=== PATIENT | female | born 1985 | race Caucasian/White ===

== ENCOUNTER 2017-06-15 10:05 | Emergency (ER) | payer SELFPAY ==
[2017-06-15 10:39] LABS: BASO % 0.3 % (0.0-2.0); EOS # 0.1 K/uL (0.0-0.7); EOS % 0.9 % (0.0-4.0); HEMATOCRIT 27.3 % (34.0-47.0); LYMPH # 1.6 K/uL (1.0-4.3); LYMPH % 22.6 % (20.0-40.0); MEAN CELL VOLUME 92.4 fL (81.0-99.0); MEAN CORPUSCULAR HEMOGLOBIN 30.7 pg (27.0-31.0); MEAN CORPUSCULAR HGB CONC 33.2 g/dL (33.0-37.0); MEAN PLATELET VOLUME 7.1 fL (7.2-11.7); MONO # 0.5 K/uL (0.0-0.8); MONO % 6.7 % (0.0-10.0); RED CELL DISTRIBUTION WIDTH 15.9 % (11.5-14.5); WHITE BLOOD COUNT 7.2 K/uL (4.8-10.8)
[2017-06-15 10:47] LABS: RBC URINE 5 /hpf (0-3); URINE BACTERIA RARE (<OCC); URINE BILIRUBIN NEGATIVE (NEGATIVE); URINE BLOOD NEGATIVE (NEGATIVE); URINE COLOR Yellow (YELLOW); URINE GLUCOSE (UA) NORMAL (Normal); URINE KETONE NEGATIVE (NEGATIVE); URINE LEUKOCYTE ESTERASE 3+ Leu/uL (Negative); URINE PROTEIN NEGATIVE (NEGATIVE); URINE UROBILINOGEN NORMAL mg/dL (0.2-1.0); WBC URINE 31 /hpf (0-5)
[2017-06-15] MEDS ORDERED: ceFAZolin IV 2 gm in Dextrose 1 GM/50 ML BAG IVPB ONE (11:41)
--- NOTE | 2017-06-15 11:44 | OBDCSUM ---
Datetime: 06/15/2017 11:43 Follow up at, Provider: Dr Marcum Disch Instr Activity: Normal activity Disch Instr Diet: Regular Discharge Instructions, Provider: Routine instructions given Discharge Time: 06/15/2017 11:43 Follow up in weeks, Provider: 06/21/17 Discharge Comment, Provider: precautions given if pain, bleeding, leakign fluis, discharge, no or decreased movement go tonearst er Discharge Diagnosis Prov Other: UTI
--- NOTE | 2017-06-15 11:44 | OBHP ---
Datetime: 06/15/2017 11:39 IP Adm Impression: , intrauterine IP Admit Plan: Discharge home Admit Comment, IP Provider: 32 y/o @ 35.5 wks GA with previous ceeseaen section c/ o non sepcif im abodminal pain since yesterady. pt reports pain is 4/10. pt reprots irregular contx, denie lof, vb , +FM. pt reports urinary frquency with incomplete empyting. pt deies any blood in urine or constipat on. Pt denies any back pain VSS PE; see above UA3+ leukocyts A/P 32 @ 35.5 wks GA with UTI, no evidence of active labor -S/p CBC, UA -UTI: Ancef, rx keflex -Anemia: on ferroussulfate BID -NST reactive, VE uncahged -Fu PMD 1 week - labor precautiosn given -NST reactivie Pelvic Type - PN: Adequate Extremities - PN: Normal Abdomen - PN: Normal Back - PN: Normal Breast - PN: Normal Lungs - PN: Normal Heart - PN: Normal Thyroid - PN: Normal Neurologic - PN: Normal HEENT - PN: Normal General - PN: Normal Presentation-Admit: Vertex FHR - Baseline A Provider: 130 Contraction Comments Provider: irregular Comments, ACOG Physical Exam: abd; garvid, no palble ctx, no uterine tenderns,s no incsinal tenderne ss Gestation - Est Wks by US: 35.5 EGA AdmitDate IP: 35.5 IP Chief Complaint: Other NICHD Variability Prov Fetus A: Moderate 6-25bpm NICHD Accel Fetus A IP Provider: 15X15 FHR Category Provider Fetus A: Category I NICHD Decel Fetus A IP Provider: None Dilatation, Provider: 1 Effacement, Provider: 50 Station, Provider: -3 Genitourinary Exam: Normal DTRs - PN: Normal
[2017-06-15] MEDS ORDERED: ceFAZolin IV 2 gm in Dextrose 1 GM/50 ML BAG IVPB SCH (12:00)
[2017-06-15] MEDS ORDERED: ceFAZolin IV 2 gm in Dextrose 2 GM/100 ML BAG IVPB SCH (12:00)
[2017-06-15 19:12] VITALS: PULSE 104; O2SAT 98
== END 2017-06-15 11:55 | disposition home or self-care (01) ==
LOC: C.EROB 10:05
DX: O23.43 Unspecified infection of urinary tract in pregnancy, third trimester (principal); Z3A.35 35 weeks gestation of pregnancy
CPT/HCPCS: 81001; 85025; 86850; 86860; 86870; 86900; 86905; 99283; J0690

== ENCOUNTER 2017-06-21 13:25 | Inpatient (IN) | payer MEDICAID, OTHER ==
[2017-06-21 13:32] VITALS: BMI 25.7
[2017-06-21] MEDS ORDERED: Lactated Ringer's 1,000 ML IV ONE (13:33)
[2017-06-21 14:05] LABS: BASO % 0.1 % (0.0-2.0); EOS % 0.5 % (0.0-4.0); HEMATOCRIT 28.5 % (34.0-47.0); LYMPH # 2.1 K/uL (1.0-4.3); LYMPH % 22.3 % (20.0-40.0); MEAN CELL VOLUME 92.3 fL (81.0-99.0); MEAN CORPUSCULAR HEMOGLOBIN 30.9 pg (27.0-31.0); MEAN CORPUSCULAR HGB CONC 33.5 g/dL (33.0-37.0); MEAN PLATELET VOLUME 7.4 fL (7.2-11.7); MONO # 0.6 K/uL (0.0-0.8); MONO % 6.5 % (0.0-10.0); NRBC % 0.1 % (0.0-2.0); RED CELL DISTRIBUTION WIDTH 15.1 % (11.5-14.5); WHITE BLOOD COUNT 9.6 K/uL (4.8-10.8)
[2017-06-21] MEDS ORDERED: Betamethasone Soluspan 30 mg/5mL Inj Susp IM ONE (14:45)
[2017-06-21] MEDS ORDERED: Sodium Citrate/Citric Acid 15 ml Sol PO ONE (15:06)
[2017-06-21] MEDS ORDERED: cefOXitin IV 2 gm in Dextrose 2 GM/50 ML BAG IVPB ONE ×2 (15:06→17:40)
--- NOTE | 2017-06-21 15:26 | OBHP ---
Datetime: 06/21/2017 15:05 IP Adm Impression: , intrauterine ; Active labor IP Admit Plan: Admit to unit Admit Comment, IP Provider: chief complaint-contractions HPI 32 y/o at 36 weeks and 4 days with c/o incisional pain since last 1 week.Pain wosre today Patient denies nausea, vomting, headache, chest pain, shortness of breath, numbness or tingling in hands and feet course uncompliacted PMH denies PSH csection OBGYN HX ; NVDX2; Csectionx1 Social hx denies tobacco,alcohol or illicit drug use Exam see exam section A/P 32 y/o at 36 weeks and 4 days in labor.hx of previous csection -admit -celestone -iv fluids -monitor closely discussed with dr avendano Pelvic Type - PN: Adequate Extremities - PN: Normal Abdomen - PN: Normal Back - PN: Normal Breast - PN: Normal Lungs - PN: Normal Heart - PN: Normal Neurologic - PN: Normal General - PN: Normal Weight - Estimated: 3000 Presentation-Admit: Vertex Contraction Comments Provider: irregular Gestation - Est Wks by US: 36.4 IP Hx Assessment: The History has been Reviewed and is Current EGA AdmitDate IP: 36.4 Vital Signs Provider: Reviewed; Within Normal Limits IP Chief Complaint: Uterine contractions FHR Category Provider Fetus A: Category I Dilatation, Provider: 3-4 Effacement, Provider: 80 Station, Provider: -2 Genitourinary Exam: Normal DTRs - PN: Normal
--- NOTE | 2017-06-21 15:29 | OBADHP ---
Datetime: 06/21/2017 15:05 Admit Comment, IP Provider: chief complaint-contractions HPI 32 y/o at 36 weeks and 4 days with c/o incisional pain since last 1 week.Pain wosre today Patient denies nausea, vomting, headache, chest pain, shortness of breath, numbness or tingling in hands and feet course uncompliacted PMH denies PSH csection OBGYN HX ; NVDX2; Csectionx1 Social hx denies tobacco,alcohol or illicit drug use Exam see exam section A/P 32 y/o at 36 weeks and 4 days in labor.hx of previous csection -admit -celestone -iv fluids -monitor closely discussed with dr avendano Pelvic Type - PN: Adequate Extremities - PN: Normal Abdomen - PN: Normal Back - PN: Normal Breast - PN: Normal Lungs - PN: Normal Heart - PN: Normal Neurologic - PN: Normal General - PN: Normal Weight - Estimated: 3000 Presentation-Admit: Vertex Contraction Comments Provider: irregular Gestation - Est Wks by US: 36.4 IP Hx Assessment: The History has been Reviewed and is Current Vital Signs Provider: Reviewed; Within Normal Limits IP Chief Complaint: Uterine contractions FHR Category Provider Fetus A: Category I Dilatation, Provider: 3-4 Effacement, Provider: 80 Station, Provider: -2 Genitourinary Exam: Normal DTRs - PN: Normal EGA AdmitDate IP: 36.4 IP Adm Impression: , intrauterine ; Active labor IP Admit Plan: Admit to unit Datetime: 06/15/2017 11:39 Thyroid - PN: Normal HEENT - PN: Normal FHR - Baseline A Provider: 130 Comments, ACOG Physical Exam: abd; garvid, no palble ctx, no uterine tenderns,s no incsinal tenderne ss NICHD Variability Prov Fetus A: Moderate 6-25bpm NICHD Accel Fetus A IP Provider: 15X15 NICHD Decel Fetus A IP Provider: None
[2017-06-21 16:27] LABS: CHLORIDE 105 mmol/L (98-107); POTASSIUM 3.9 mmol/L (3.6-5.2); SODIUM 136 mmol/L (132-148)
[2017-06-21 16:29] LABS: AST/SGOT 20 U/L (14-36); BILIRUBIN,TOTAL 0.8 mg/dL (0.2-1.3); CARBON DIOXIDE 21 mmol/L (22-30); GFR AFRICAN-AMERICAN > 60
[2017-06-21 16:30] LABS: ALKALINE PHOSPHATASE 144 U/L (38-126); ALT/SGPT 22 U/L (9-52); BLOOD UREA NITROGEN 5 mg/dL (7-17); GLUCOSE,RANDOM 65 mg/dL (65-105); TOTAL PROTEIN 6.9 g/dL (6.3-8.3)
[2017-06-21 16:31] LABS: CALCIUM 8.5 mg/dl (8.6-10.4)
[2017-06-21 16:50] LABS: URINE BILIRUBIN NEGATIVE (NEGATIVE); URINE BLOOD NEGATIVE (NEGATIVE); URINE COLOR Straw (YELLOW); URINE GLUCOSE (UA) NORMAL (Normal); URINE KETONE TRACE mg/dL (NEGATIVE); URINE LEUKOCYTE ESTERASE NEG Leu/uL (Negative); URINE PROTEIN NEGATIVE (NEGATIVE); URINE UROBILINOGEN NORMAL mg/dL (0.2-1.0); WBC URINE < 1 /hpf (0-5)
[2017-06-21] MEDS ORDERED: Dextrose 5%/Lactated Ringer's 1,000 ML IV SCH (17:15)
[2017-06-21] MEDS ORDERED: Oxytocin 20 units in LR 0 ML IV ONE (17:40)
[2017-06-21] MEDS ORDERED: Sodium Citrate/Citric Acid 15 ml Sol ONE (17:41)
[2017-06-21] MEDS ORDERED: Oxytocin 10 Units/ml Inj ONE (17:43)
[2017-06-21] MEDS ORDERED: Oxytocin 20 units in LR 2,000 ML IV ONE ×2 (17:45→18:28)
[2017-06-21] MEDS ORDERED: Morphine 1 mg/ml preservative-free Inj(Duramorph) ONE (18:16)
[2017-06-21] MEDS ORDERED: Naloxone 0.4 mg/ml Inj (Adult) IVP PRN (18:17)
[2017-06-21] MEDS ORDERED: DiphenhydrAMINE 50 mg/ml Inj IVP PRN (18:17)
--- NOTE | 2017-06-21 19:58 | OBDS ---
DELIVERY PERSONNEL Delivery Doctor: Hieu Marcum MD Scrub Nurse: Breana Avery Pole Classifier: May Encinas RN/ Tavo ARMSTRONG Anesthesiologist: Sandra Amado MD Resident: Sugar Calderón MATERNAL INFORMATION Delivery Anesthesia: Spinal Medications in Delivery: PITOCIN Maternal Complications: None RN Comments: Liveborn BAby Boy. 9-9 Provider Comments: live male infant, agpars 9,9 densie adhesins normal uterus, tube sand oviaers b/l btl perofmred Dr Calli was surgical assistnt jaimie 700 ml LABOR SUMMARY EDC: 07/15/2017 00:00 No. Babies in Womb: 1 Attempted: No Labor Anesthesia: Spinal LABOR INFORMATION Reason for Induction: Other Oxytocin: N/A Group B Beta Strep: Negative Antibiotics # of Doses: 1 Antibiotics Time of Last Dose: Mefoxin 2gm IV @1838 Steroids Given: < 24 Hours before Delivery Reason Steroids Not Administered: Not Applicable MEMBRANES Membranes Rupture Method: Artificial Rupture of Membranes: 06/21/2017 19:03 Length of Rupture (hrs): 0.00 Amniotic Fluid Color: Clear Amniotic Fluid Amount: Moderate Amniotic Fluid Odor: Normal STAGES OF LABOR Stage 3 hrs: 0 Stage 3 min: 2 CSECTION DELIVERY Primary Indication: Repeat C/S in labor CSection Urgency: Emergency CSection Incidence: Repeat Labor: Labor Elective: N/A CSection Incision: Lower Uterine Transverse BABY A INFORMATION Delivery Date/Time: 06/21/2017 19:03 Method of Delivery: Born in Route : No : N/A Forceps: N/A Vacuum Extraction: N/A Shoulder Dystocia : No SHOULDER DYSTOCIA BABY A Delivery Date/Time: 06/21/2017 19:03 PRESENTATION/POSITION BABY A Presentation: Cephalic Cephalic Presentation: Vertex Vertex Position: Left Occipital Anterior Breech Presentation: N/A PLACENTA INFORMATION BABY A Placenta Delivery Time : 06/21/2017 19:05 Placenta Method of Delivery: Manual Removal Placenta Status: Delivered SCORES BABY A Heart Rate 1 min: >100 bpm Resp Effort 1 min: Good Cry Reflex Irritability 1 min: Cough or Sneeze or Pulls Away Muscle Tone 1 min: Active Motion Color 1 min: Body Hop Bottom, Extremities Blue Resuscitation Effort 1 min: N/A SCORE 1 MIN: 9 Heart Rate 5 min: >100 bpm Resp Effort 5 min: Good Cry Reflex Irritability 5 min: Cough or Sneeze or Pulls Away Muscle Tone 5 min: Active Motion Color 5 min: Body Hop Bottom, Extremities Blue Resuscitation Effort 5 min: N/A SCORE 5 MIN: 9 INFANT INFORMATION BABY A Gestational Age at Delivery: 36.4 Gestational Status: Infant Outcome : Liveborn Infant Condition : Stable Infant Sex: Male IDENTIFICATION/MEDS BABY A ID Band Number: [id number] ID Band Location: Left Leg; Left Arm Sensor Applied: Yes Sensor Number: [id number] Sensor Location : Cord Clamp Vitamin K Given : Not Given Erythromycin Given: Not Given WEIGHT/LENGTH BABY A Infant Birthweight (gms): 2830 Weight (lb): 6 Infant Weight (oz): 4 Infant Length Inches: 18.50 Length cms: 47.0 CORD INFORMATION BABY A No. Cord Vessels: 3 Nuchal Cord : N/A Cord pH Baby Venous: 7.36 Cord Blood Taken: Yes Infant Suction: Mouth; Nose ASSESSMENT BABY A Complications: None Physical Findings at Delivery: Within Normal Limits Infant Respirations: Appears Normal Infant Care By: Transferred To: Nursery
--- NOTE | 2017-06-21 20:01 | PCM.SURG1 ---
Surgeon's Initial Post Op Note - Surgeon's Notes Surgeon: Alicja avendano md Drawing Press Operator: Richard Mccurdy MD Type of Anesthesia: Spinal Pre-Operative Diagnosis: , previous cesearean seciton, contracing in labor, multiparity desiring permenate tubal sterilzation Operative Findings: life male ifnant, arline presentation agpars 9,9 weight of 6lb 4 ounces, normal uterus, tubes and ovaries bilaterally. Dr Richard Mccurdy was director medical surgical and prsent for entrie case adn essential in gainign entry, retrcation, exposure, holding bladder blade, ehlpign to deliveyr infant, closingall castaneda, peofmrng bitaeral tubal ligatin, obtaining hemostaiss Post-Operative Diagnosis: same as above Operation Performed: Repaet Low transverse cesearean section, bilateral tubal ligation Specimen/Specimens Removed: placenta Estimated Blood Loss: EBL {In ML}: 700 Blood Products Given: N/A Drains Used: No Drains Date of Surgery/Procedure: 06/21/17 Time of Surgery/Procedure: 19:00
[2017-06-21] MEDS ORDERED: Oxycodone/Acetaminophen 5/325 mg Tab PO PRN (20:04)
[2017-06-21] MEDS ORDERED: Oxytocin 30 UNIT 30 UNITS/500 ML BAG IV SCH (20:15)
--- NOTE | 2017-06-22 05:51 | OP ---
PROCEDURE DATE: 06/21/2017 PREOPERATIVE DIAGNOSIS: , previous section domenic labor at 36 plus weeks, multiparous, desiring permanent tubal sterilization. POSTOPERATIVE DIAGNOSIS: , previous section domenic labor at 36 plus weeks, multiparous, desiring permanent tubal sterilization. OPERATION PERFORMED: Repeat low transverse section, bilateral tubal ligation. SURGEON: Dr. Alicja Marcum. RESIDENTIAL COUNSELOR: Dr. Richard Mccurdy. TYPE OF ANESTHESIA: Spinal. ESTIMATED BLOOD LOSS: 700 mL. URINE OUTPUT: 400 mL. SPECIMEN: Placenta. BLOOD PRODUCTS: None. COMPLICATIONS: None. OPERATIVE FINDINGS: Viable male infant, MAGUE presentation, Apgars 9 and 9, weight of 6 pounds 4 ounces. Normal uterus, fallopian tubes, ovaries bilaterally. Dense adhesions. Dr. Richard Mccurdy was the neurosurgical nurse, was present for entire case, and was essential in gaining entry, retraction, exposure, holding the bladder blade, delivery helping delivering the , closing all layers, and performing bilateral tubal ligation, obtaining hemostasis and was present for the entire case. DESCRIPTION OF PROCEDURE: The patient was taken to the operating room where she was given spinal anesthesia. Once it was found to be adequate, she was placed on the operating room table in dorsal supine position. The patient was then prepped and draped in the usual sterile fashion. Time-out was confirmed correct patient and correct procedure. The patient was given preoperative prophylactic antibiotics. A Pfannenstiel skin was made with an existing incision and carried down to the underlying scalpel with the Bovie. The fascia was incised in the midline and incision was extended laterally with the Bovie. The superior aspect of the fascial incision was grasped with Allis and Aissatou clamps and underlying rectus muscle dissected off bluntly. Attention was then turned to the inferior aspect of the incision with just a similar fashion was grasped with Allis and Aissatou clamps and lateral aspect of the rectus muscle bluntly. The rectus muscle was then bluntly in the midline using two Allis and Aissatou clamps. The peritoneum identified in a clear space. Entered bluntly. Incision was extended laterally and superiorly shows good visualization of the bladder. The lower end of the Mehreen was then inserted and the lower uterine segment was incised in a transverse fascia. The uterine incision was entered laterally, but the lower uterine segment appeared very thinned down, and the uterine segment was entered laterally bluntly. Amniotic fluid membranes were then ruptured and clear fluid noted. The surgeon's hand entered the uterine cavity. Atraumatic delivery of the infant's head followed by delivery of the shoulders followed by delivery of the body. Both oral and nasal passages of the baby were bulb suctioned. The umbilical cord was clamped and cut. The baby was handed off to waiting cafeteria food server. Cord blood and cord gases were collected and sent x2. The placenta was then delivered manually. The uterus was exteriorized and cleared off all clots and debris. The uterine incision was repaired with 0-Vicryl in running continuous locked fashion. A second layer of the same suture was used to close the uterus in a running imbricating manner. There was good hemostasis at the uterine incision site. Bilateral tubal ligation was then performed in [place] manner with [place] clamp along the one-third portion of the isthmus portion of the fallopian tube and suture ligated and cauterized with a 2-0 plain. Specimen, fallopian on the left and right tube was then sent to pathology and labeled. There was good hemostasis at the tubal ligation port, so the uterus was then returned to the abdomen and the paracolic gutters were cleared off clots and debris. There was good hemostasis at the uterine incision site and tubal ligation port. The peritoneum was reapproximated with 2-0 Chromic in a continuous fashion. The rectus was reapproximated with 2-0 chromic interrupted manner. The fascia was reapproximated and closed with 0-Vicryl in a running continuous fashion. The subcutaneous space was closed with 2-0 plain in an interrupted manner and the skin was reapproximated and 4-0 Monocryl in a running subcuticular fashion. At the end of the procedure, all needle, sponge, and instrument counts were noted to be correct x2. The patient tolerated the procedure well and was transferred to the recovery room in stable condition. Alicja Marcum MD
[2017-06-22 08:51] LABS: HEMATOCRIT 24.7 % (34.0-47.0); MEAN CORPUSCULAR HEMOGLOBIN 30.8 pg (27.0-31.0); MEAN CORPUSCULAR HGB CONC 33.5 g/dL (33.0-37.0); MEAN PLATELET VOLUME 7.5 fL (7.2-11.7); RED CELL DISTRIBUTION WIDTH 15.3 % (11.5-14.5); WHITE BLOOD COUNT 13.5 K/uL (4.8-10.8)
[2017-06-22 08:59] LABS: CHLORIDE 105 mmol/L (98-107); POTASSIUM 4.6 mmol/L (3.6-5.2); SODIUM 133 mmol/L (132-148)
[2017-06-22 09:02] LABS: BLOOD UREA NITROGEN 8 mg/dL (7-17); CARBON DIOXIDE 22 mmol/L (22-30); GFR AFRICAN-AMERICAN > 60
[2017-06-22 09:03] LABS: CALCIUM 7.8 mg/dl (8.6-10.4); GLUCOSE,RANDOM 83 mg/dL (65-105)
[2017-06-22] MEDS: Simethicone 80 mg Chewtab PO SCH ×4 (09:09→21:56)
[2017-06-22] MEDS: Oxycodone/Acetaminophen 5/325 mg Tab PO PRN ×2 (09:09→16:00)
[2017-06-22] MEDS ORDERED: Prenatal Multivit/Folic Acid/Iron Tab PO SCH (10:00)
[2017-06-22] MEDS ORDERED: Bisacodyl 5mg EC Tab PO ONE (20:15)
[2017-06-23] MEDS: Oxycodone/Acetaminophen 5/325 mg Tab PO PRN ×2 (04:07→17:25)
[2017-06-23] MEDS: Simethicone 80 mg Chewtab PO SCH ×4 (09:28→21:47)
[2017-06-23] MEDS: Prenatal Multivit/Folic Acid/Iron Tab PO SCH (10:12)
[2017-06-23 16:29] VITALS: O2SAT 100
[2017-06-24] MEDS: Oxycodone/Acetaminophen 5/325 mg Tab PO PRN (00:55)
[2017-06-24 08:02] VITALS: BP 98/70; RESP 18
[2017-06-24] MEDS: Prenatal Multivit/Folic Acid/Iron Tab PO SCH (09:19)
[2017-06-24] MEDS: Simethicone 80 mg Chewtab PO SCH (09:22)
[2017-06-24] MEDS ORDERED: Measles, Mumps, and Rubella 0.5 ML VIAL SC ONE (10:00)
[2017-06-24 18:36] VITALS: PULSE 90; TEMP 97.8
--- NOTE | 2017-06-28 09:07 | OBPPN ---
Datetime: 06/23/2017 09:58 PP Pain Prov: Within normal limits PP Nausea Prov: Denies PP BM Prov: Yes PP Impression Prov: Normal progression PP Plan Prov: Continue present management PP Progress Note Prov: Patient seen and examined at bedside. Per nursing, no acute events overnight. Patient is doing well, pain is controlled. Lochia is mild. Ambulating and tolerating diet. Breast an d bottle feeding. Reports passing flatus and having BM. Urinating without difficulty. Denies fevers, chills, headaches, dizziness, cp, palpitations, sob, urinary symptoms. VS: BP 97/64 HR 81 Temp 97.7 Gen: AAOx3 CV: RRR Lungs: CTA B/L Abd: soft, appropriately tender, fundus firm below umbilicus, right aspect of incision reapproxima luis enrique with steristrips, incicision is clean and dry Ext: No clubbing, cyanosis, edema; no calf tenderness Labs: 9.6>9.6/28.5<244 13.5>8.3/24.7<222 A positive Rubella non-immune A/P: 32 yo at 36w4d s/p RLTCD with BTL who presented in labor POD#2 1. Stable, afebrile 2. Pain control- percocet and motrin prn 3. Encourage ambulation and hydration; Encourage ISS use 4. Chronic Anemia - continue ferrous sulfate BID 5. Male - no circ 6. Rubella non-immune - MMR prior to discharge 7. Continue routine post care 8. Anticipate D/C home tomorrow 9. Plan d/w attending Sugar Caro DO, PGY-1 dealyed entry, pt seen and examine,d agree with aobve Vital Signs Provider PP: Reviewed Datetime: 06/22/2017 07:26 PP Flatus Prov: No
--- NOTE | 2017-06-28 09:10 | OBPPN ---
Datetime: 06/24/2017 09:07 PP Pain Prov: Within normal limits PP Nausea Prov: Denies PP Flatus Prov: Yes PP BM Prov: Yes PP Breasts Prov: Normal PP Heart Prov: Normal PP Lungs Prov: Normal PP Abdomen/Uterus Prov: Normal PP Lochia Prov: Normal PP Vulva/Perineum Prov: Normal PP CVA Tenderness Prov: Normal PP Extremities Prov: Normal PP Comments Phys Exam Prov: Incsion c/d/i healing well PP Impression Prov: Normal progression PP Plan Prov: Discharge PP Progress Note Prov: dealyed entry: pt seen adn examined with no compliants VSS PE see above A/P s/p RPLTCS +BTL POD #3 with asympaotic acute blood loss anemia, stable for d/c dc home rto 1 week precautiosn given Vital Signs Provider PP: Reviewed; Within Normal Limits
--- NOTE | 2017-06-28 09:10 | OBDCSUM ---
Datetime: 06/24/2017 08:14 Discharge Instructions, Provider: Routine instructions given Discharge Diagnosis Prov Other: previus cesearean section contracing in preteram labor Contraception after Delivery: Tubal Ligation
== END 2017-06-24 14:20 | disposition home or self-care (01) | DRG 766 ==
LOC: C.EROB 13:25 → C.4D 15:08 → C.4M 22:35
PROVIDERS: ADMIT Obstetrics & Gynecology; ATTEND Obstetrics & Gynecology
PROC: 10D00Z1 Extraction of Products of Conception, Low, Open Approach (ICD-10-PCS; principal; 2017-06-21)
PROC: 0UB70ZZ Excision of Bilateral Fallopian Tubes, Open Approach (ICD-10-PCS; 2017-06-21)
DX: O60.14X0 Preterm labor third trimester with preterm delivery third trimester, not applicable or unspecified (principal); O34.211 Maternal care for low transverse scar from previous cesarean delivery; Z30.2 Encounter for sterilization; Z37.0 Single live birth; Z3A.36 36 weeks gestation of pregnancy